=== PATIENT | female | born 1995 | race Caucasian/White ===

== ENCOUNTER 2019-09-04 19:09 | Day surgery (SDC) | payer OTHER ==
[2019-09-04 19:36] VITALS: BMI 30.7
[2019-09-04] MEDS ORDERED: hydrALAZINE 20 MG/ML VIAL SLOW IVP PRN (19:36)
--- NOTE | 2019-09-04 19:40 | PDOC.LDHP ---
Labor and Delivery H&P Chief complaint: other (vaginal pressure with decreased movements) HPI: 24 y/o F @ 26.3 weeks presents to L&D with decreased movements and vaginal pressure with urinary frequency and hesitancy. Pt denies any hx of labor or delivery, all children born at term. Last movements were yesterday morning. Pt started having abd pain this morning. pt states she feels the urge to urinate but is unable to urinate; non-painful though. Pt thinks her vaginal pressure is consistent with ctx like pain and comes and goes. Denies LOF, vaginal bleeding. admits to vag d/c that is odorous and yellow in color. No hx of STD's previously. C/o low back pain. PCP: [facility] Current gestational age (weeks): 26 (3 days ) Due date: 12/08/19 Grav: 4 Para: 3 OB History Details: Pre 1-3: at term No complications reported Current complications: none Past Medical History: asthma, uses albuterol inhaler frequently Current medications: pre-wily vitamins Previous surgical history: other (tympanostomy as a child) Allergies/Adverse Reactions: Allergies Allergy/AdvReac Type Severity Reaction Status Date / Time acetaminophen [From Tylenol] Allergy Rash Verified 09/04/19 19:29 aspirin Allergy Verified 05/06/19 16:01 codeine Allergy Rash Verified 09/04/19 19:29 ibuprofen Allergy Verified 05/06/19 16:01 Social history: none (denies etoh, tobacco or drugs) - Physical Exam Vital signs reviewed and normal: yes General: NAD Heart: RRR Lungs: CTAB Abdomen: other (suprpubic TTP) Extremeties: no edema FHT: variable decelerations, variability present (mod variabilty FHT baseline 140) [place] contractions every: none - Plan Plan: observation in L&D -: 24 y/o @ 26.3 wks presents with decreased movements and urinary frequency/hesitancy. 1. sIUP @ 26.3 wks - toco monitoring - continuous monitoring - FHT's 140 baseline, with variable decels, mod variability. 2. probable acute cystitis - UA and ccx ordered - Oral hydration - will treat pending UA results accordingly. 3. Vaginal discharge - VP3 ordered - will treat pending results 4. decreased movements - BPP 5. Vaginal pressure - FFN ordered - cervical length ordered. - no contractions on toco, but irritability. Dispo: stable, work up for pre-term labor and cystitis oral hydration BPP, cervical length and and UA pending. care plan discussed with Dr. Gutierrez who is in agreement with above stated plan. Addendum - Attending - Attending Attestation Date/Time: 09/04/192101 I personally evaluated the patient and discussed the management with Dr. Argueta. I agree with the History, Examination, Assessment and Plan documented above.
[2019-09-04 20:08] LABS: Bacteria/HPF None Seen HPF (None Seen); Bilirubin Negative (Negative); Blood, Urine Negative (Negative); Clarity Clear (Clear); Glucose, Urine (Dipstick) Normal (Negative); Ketone, Urine Negative (Negative); Leukocyte Negative Leu/uL (Negative); Nitrite Negative (Negative); Protein, Urine (Dipstick) Negative (Neg-Trace); RBC/HPF 0-3 HPF (0-3); Specific Gravity, Urine 1.015 (1.002-1.036); Squamous Epithelial 0-3 HPF (0-3); Urobilinogen Normal mg/dL (Less than 2); WBC/HPF 0-3 HPF (0-3); pH, Urine 6.5 (5.0-9.0)
[2019-09-04 20:09] LABS: Urine Culture Reflex No No
[2019-09-04 20:30] LABS: FFN Internal QC Analyzer PASS (PASS); FFN Internal QC Cassette PASS (PASS); Fetal Fibronectin Negative (Negative)
--- NOTE | 2019-09-04 21:45 | ULT ---
BIOPHYSICAL PROFILE: 09/04/19 INDICATIONS: Decreased movement. FINDINGS/IMPRESSION: tone: Score 2 movement: Score 2 breathing: Score 0 Amniotic fluid: Score 2 Total score: 6/8. position: Vertex. Amniotic fluid: Adequate. LIN recorded at 14.1 cm. Placenta is fundal and appears unremarkable. heart rate: 147 beats per minute. POS: AGW
[2019-09-04] MEDS ORDERED: Lactated Ringer's 1,000 ML IV SCH ×2 (22:00→23:00)
--- NOTE | 2019-09-04 22:11 | PDOC.BPN ---
<Gauri Argueta - Last Filed: 09/04/19 22:08> - Brief Progress Note BPP 6/8 with 0 score for breathing. Right kidney hydronephrosis with absence of ureteral jet. FFN negative. UA normal. VP3 and GC/C pending Added CBC and CMP to lab workup. Called an spoke with PCP, Dr. Garvey, about lab and US findings above, who recommends IVF hydration and pain management. Pt is allergic to most pain medications and is comfortable at this time. If pain worsens, will re-evaluate and consider other options. Will repeat limited abd sono for R hydronephrosis and no ureteral jet morning of 09/04 @ 0800. Care plan discussed with Dr. Gutierrez who is in agreement with above stated plan. <Kalen Gutierrez - Last Filed: 09/05/19 05:54> Addendum - Attending - Attending Attestation Date/Time: 09/05/19 4631 I personally evaluated the patient and discussed the management with Dr. Argueta I agree with the History, Examination, Assessment and Plan documented above.
--- NOTE | 2019-09-04 22:25 | PDOC.BPN ---
<Gauri Argueta - Last Filed: 09/04/19 22:25> - Brief Progress Note VP3 + for BV. started metronidazole 250 mg TID, for 7 days. <Kalen Gutierrez - Last Filed: 09/05/19 05:55> - Brief Progress Note Agree with above. BZ
[2019-09-04 22:29] LABS: #Basophils 0.1 thou/uL (0.0-0.2); #Eosinphils 0.2 thou/uL (0.0-0.7); #Lymphocytes 1.8 thou/uL (1.20-3.40); #Monocytes 0.4 thou/uL (0.11-0.59); #Neutrophils 6.8 thou/uL (1.40-6.50); %Basophils 0.6 % (0.0-1.0); %Eosinophils 1.6 % (0.0-10.0); %Lymphocytes 19.5 % (21.0-51.0); %Monocytes 4.8 % (0.0-10.0); %Neutrophils 73.5 % (42.0-75.0); Hemoglobin 11.5 g/dL (12.0-16.0); Mean Corpuscular HGB CONC 33.1 g/dL (32.0-36.0); Mean Corpuscular Hemoglobin 29.8 pg (27.0-31.0); Mean Platelet Volume 7.2 fL (7.4-10.4); Platelet Count 349 thou/uL (130-400); RBC Distribution Width 12.4 % (11.5-14.5); Red Blood Cell (RBC) Count 3.85 mill/uL (4.20-5.40); White Blood Cell (WBC) Count 9.2 thou/uL (4.8-10.8)
[2019-09-04 22:51] LABS: ALT (SGPT) 13 U/L (8-55); AST (SGOT) 18 U/L (5-34); Albumin 3.6 g/dL (3.5-5.0); Alkaline Phosphatase 85 U/L (40-110); Anion Gap 14 mmol/L (10-20); BUN (Urea Nitrogen) 5 mg/dL (7.0-18.7); Bilirubin, Total 0.3 mg/dL (0.2-1.2); Calc. Creatinine Clearance 186 mL/min (70-130); Calcium 8.9 mg/dL (7.8-10.44); Carbon Dioxide 22 mmol/L (22-29); Chloride 103 mmol/L (98-107); Estimated GFR-MDRD Greater than 90; Globulin 3.7 g/dL (2.4-3.5); Glucose 74 mg/dL (70-105); Potassium 3.7 mmol/L (3.5-5.1); Protein, Total 7.3 g/dL (6.0-8.3); Sodium 135 mmol/L (136-145)
[2019-09-05 02:00] VITALS: BP 135/73; TEMP 98.7
--- NOTE | 2019-09-05 06:47 | PDOC.EVN ---
Event Note - Event Note Event Note: 26 4/7 weeks Resting more comfortably this AM. IV hydrated overnight. No pain meds given 2* to multiple reported allergies. VSS AF Cr on admit= .6 Plan: Will repeat renal USG this AM to detect ureteral jet.
[2019-09-05] MEDS ORDERED: metroNIDAZOLE 500 MG TAB PO SCH ×2 (09:00)
--- NOTE | 2019-09-05 09:01 | ULT ---
RENAL ULTRASOUND: HISTORY: female with hydronephrosis. COMPARISON: None. TECHNIQUE: Multiplanar osuna-scale and color Doppler images were obtained in a renal ultrasound. FINDINGS: There is moderate right-sided hydronephrosis. Both kidneys are normal in echogenicity without calculi . No left hydronephrosis is seen. The kidneys measures 12.6 and 12.1 cm in length on the right and le ft, respectively. Both ureteral jets were visualized. IMPRESSION: Moderate right-sided hydronephrosis. POS: EAA
--- NOTE | 2019-09-05 09:21 | PDOC.BPN ---
- Brief Progress Note Official ultrasound report returned with right hydronephrosis and both ureteral jets visualized. Encouraged patient to stay hydrated and follow up w/ director data as scheduled. Sent Rx for metronidazole 250mg TID for 7 days to patient's pharmacy for BV.
[2019-09-05 17:30] LABS: Chlamydia by PCR Not Detected (NotDetected); GC by PCR Not Detected (NotDetected)
== END 2019-09-05 10:35 | disposition home health service (06) ==
LOC: L&D/OP 19:09
PROVIDERS: ATTEND Obstetrics & Gynecology
DX: O36.8120 Decreased fetal movements, second trimester, not applicable or unspecified (principal); O99.89 Other specified diseases and conditions complicating pregnancy, childbirth and the puerperium; N13.30 Unspecified hydronephrosis; R10.2 Pelvic and perineal pain; M54.5 Low back pain; O23.592 Infection of other part of genital tract in pregnancy, second trimester; B96.89 Other specified bacterial agents as the cause of diseases classified elsewhere; Z3A.26 26 weeks gestation of pregnancy; Z88.5 Allergy status to narcotic agent; Z88.6 Allergy status to analgesic agent
CPT/HCPCS: 76770; 76819; 80053; 81001; 82731; 85025; 87480; 87491; 87510; 87591; 87660

== ENCOUNTER 2020-04-08 14:26 | Emergency (ER) | payer OTHER ==
--- NOTE | 2020-04-08 15:18 | RAD ---
XR Finger(s) Rt Min 2 View History: Injury Comparison: None. Findings: No acute displaced fracture or malalignment. Normal metacarpal phalangeal and interphalange al sesamoids. Impression: No acute osseous abnormality.
== END 2020-04-08 15:40 | disposition home or self-care (01) ==
LOC: ERS 14:26
DX: S60.011A Contusion of right thumb without damage to nail, initial encounter (principal); W23.0XXA Caught, crushed, jammed, or pinched between moving objects, initial encounter

== ENCOUNTER 2020-11-18 19:49 | Emergency (ER) | payer OTHER ==
[2020-11-18] MEDS ORDERED: Morphine 4 MG/ML VIAL ONE (22:22)
== END 2020-11-18 22:30 | disposition home or self-care (01) ==
LOC: ERS 19:49
DX: S13.4XXA Sprain of ligaments of cervical spine, initial encounter (principal); S20.212A Contusion of left front wall of thorax, initial encounter; V49.40XA Driver injured in collision with unspecified motor vehicles in traffic accident, initial encounter
CPT/HCPCS: 70450; 71045; 72125; 96372; J2270

== ENCOUNTER 2021-01-07 15:16 | Emergency (ER) | payer OTHER | END 2021-01-07 16:50 | disposition home or self-care (01) | LOC: ERS 15:16 | DX: S93.402A Sprain of unspecified ligament of left ankle, initial encounter (principal); W01.0XXA Fall on same level from slipping, tripping and stumbling without subsequent striking against object, initial encounter; Y92.090 Kitchen in other non-institutional residence as the place of occurrence of the external cause ==

== ENCOUNTER 2021-01-16 18:33 | Emergency (ER) | payer OTHER ==
[2021-01-16 18:55] LABS: #Eosinphils 0.2 thou/uL (0.0-0.7); #Lymphocytes 1.6 thou/uL (1.20-3.40); #Monocytes 0.3 thou/uL (0.11-0.59); #Neutrophils 2.5 thou/uL (1.40-6.50); %Eosinophils 3.7 % (0.0-10.0); %Lymphocytes 34.6 % (21.0-51.0); %Neutrophils 54.7 % (42.0-75.0); Mean Corpuscular Hemoglobin 29.7 pg (27.0-31.0); Mean Corpuscular Volume 89.8 fL (78.0-98.0); Mean Platelet Volume 6.7 fL (7.4-10.4); Platelet Count 412 thou/uL (130-400); RBC Distribution Width 12.5 % (11.5-14.5); Red Blood Cell (RBC) Count 4.39 mill/uL (4.20-5.40); White Blood Cell (WBC) Count 4.6 thou/uL (4.8-10.8)
[2021-01-16 19:29] LABS: ALT (SGPT) 8 U/L (8-55); AST (SGOT) 11 U/L (5-34); Albumin 4.2 g/dL (3.5-5.0); Alkaline Phosphatase 56 U/L (40-110); Anion Gap 9 mmol/L (10-20); BUN (Urea Nitrogen) 8 mg/dL (7.0-18.7); Bilirubin, Total 0.6 mg/dL (0.2-1.2); Calc. Creatinine Clearance 0 mL/min (70-130); Calcium 9.3 mg/dL (7.8-10.44); Carbon Dioxide 27 mmol/L (22-29); Chloride 105 mmol/L (98-107); Globulin 2.9 g/dL (2.4-3.5); Glucose 93 mg/dL (70-105); Potassium 3.8 mmol/L (3.5-5.1); Protein, Total 7.1 g/dL (6.0-8.3); Sodium 137 mmol/L (136-145)
[2021-01-16] MEDS ORDERED: Lorazepam 2 MG/ML VIAL ONE (19:47)
[2021-01-16] MEDS ORDERED: Morphine 4 MG/ML VIAL ONE (19:47)
[2021-01-16 19:57] LABS: BHCG - Serum Negative (NEGATIVE); Pregs Control Background? CLEAR/WHITE (CLR/WHITE); Pregs Control Bar Appear? YES (CONTROL BAR)
== END 2021-01-16 21:18 | disposition home or self-care (01) ==
LOC: ERS 18:33
DX: R07.89 Other chest pain (principal)
CPT/HCPCS: 36415; 71045; 80053; 83690; 84484; 84703; 85025; 85379; 93005; 96374; 96375; J2060; J2270

== ENCOUNTER 2022-05-21 22:11 | Emergency (ER) | payer OTHER ==
[2022-05-21 23:02] LABS: #Basophils 0.1 thou/uL (0.0-0.2); #Eosinphils 0.1 thou/uL (0.0-0.7); #Lymphocytes 2.2 thou/uL (1.20-3.40); #Monocytes 0.4 thou/uL (0.11-0.59); #Neutrophils 2.9 thou/uL (1.40-6.50); %Eosinophils 2.1 % (0.0-10.0); %Lymphocytes 38.9 % (21.0-51.0); %Monocytes 6.3 % (0.0-10.0); %Neutrophils 51.6 % (42.0-75.0); Hemoglobin 13.1 g/dL (12.0-16.0); Mean Corpuscular HGB CONC 33.6 g/dL (32.0-36.0); Mean Corpuscular Hemoglobin 31.4 pg (27.0-31.0); Mean Corpuscular Volume 93.4 fl (78.0-98.0); Mean Platelet Volume 6.9 fL (7.4-10.4); Platelet Count 346 10x3/uL (130-400); RBC Distribution Width 11.8 % (11.5-14.5); Red Blood Cell (RBC) Count 4.17 mill/uL (4.20-5.40); White Blood Cell (WBC) Count 5.5 10x3/uL (4.8-10.8)
[2022-05-21 23:21] LABS: ALT (SGPT) 9 U/L (8-55); AST (SGOT) 10 U/L (5-34); Albumin 4.2 g/dL (3.5-5.0); Alkaline Phosphatase 47 U/L (40-110); Anion Gap 11 mmol/L (10-20); BUN (Urea Nitrogen) 15 mg/dL (7.0-18.7); Bilirubin, Total 0.3 mg/dL (0.2-1.2); Calc. Creatinine Clearance 0 mL/min (70-130); Calcium 9.5 mg/dL (7.8-10.44); Carbon Dioxide 27 mmol/L (22-29); Chloride 104 mmol/L (98-107); Estimated GFR 105; Globulin 2.6 g/dL (2.4-3.5); Glucose 68 mg/dL (70-105); Potassium 3.8 mmol/L (3.5-5.1); Protein, Total 6.8 g/dL (6.0-8.3); Sodium 138 mmol/L (136-145)
[2022-05-22 00:06] LABS: Bilirubin Negative (Negative); Blood, Urine Negative (Negative); Glucose, Urine (Dipstick) Negative (Negative); Ketone, Urine Negative (Negative); Leukocyte Negative (Negative); Nitrite Negative (Negative); Protein, Urine (Dipstick) Negative (Neg-Trace); Specific Gravity, Urine 1.015 (1.005-1.030); Urobilinogen 0.2 mg/dL (Less than 2); pH, Urine 6.5 (5.0-9.0)
[2022-05-22 00:12] LABS: Clarity Clear (Clear)
[2022-05-22 00:13] LABS: Pregnancy Test - Urine (BHCG) Negative (Negative); Pregu Control Background? CLEAR/WHITE (CLR/WHITE); Pregu Control Bar Appear? YES (CONTROL BAR); Specific Gravity 1.015 (1.002-1.036)
[2022-05-22] MEDS ORDERED: Ondansetron ODT 4 MG TAB ONE (00:35)
[2022-05-22] MEDS ORDERED: Ondansetron PF 4 MG/2 ML Vial ONE (01:59)
[2022-05-22] MEDS ORDERED: Dicyclomine 20 MG/2 ML VIAL ONE (01:59)
[2022-05-22] MEDS ORDERED: Iopamidol-370 76% 500 ML MDV (1 ML CHARGE) ONE (12:32)
== END 2022-05-22 03:19 | disposition home or self-care (01) ==
LOC: ERS 22:11
DX: R10.9 Unspecified abdominal pain (principal)
CPT/HCPCS: 36415; 74177; 80053; 81003; 81025; 83690; 85025; 87086; 96372; 96374; J2405; Q0162; Q9967

== ENCOUNTER 2022-05-25 14:28 | Emergency (ER) | payer OTHER ==
[~2022-05-25 14:28] MED LIST: Iopamidol-370 76% 500 ML MDV (1 ML CHARGE) ONE
[2022-05-25 15:15] LABS: Bilirubin Negative (Negative); Blood, Urine Negative (Negative); Glucose, Urine (Dipstick) Normal (Negative); Ketone, Urine Negative (Negative); Leukocyte Negative Leu/uL (Negative); Nitrite Negative (Negative); Protein, Urine (Dipstick) 10 mg/dL (Neg-Trace); Specific Gravity, Urine 1.018 (1.002-1.036); Urobilinogen Normal mg/dL (Less than 2); pH, Urine 6.5 (5.0-9.0)
[2022-05-25 15:20] LABS: Clarity Hazy (Clear)
[2022-05-25 15:21] LABS: Pregnancy Test - Urine (BHCG) Negative (Negative); Pregu Control Background? CLEAR/WHITE (CLR/WHITE); Pregu Control Bar Appear? YES (CONTROL BAR); Specific Gravity 1.018 (1.002-1.036)
[2022-05-25 16:10] LABS: ALT (SGPT) 9 U/L (8-55); AST (SGOT) 10 U/L (5-34); Albumin 4.6 g/dL (3.5-5.0); Alkaline Phosphatase 45 U/L (40-110); Anion Gap 13 mmol/L (10-20); BUN (Urea Nitrogen) 8 mg/dL (7.0-18.7); Bilirubin, Total 0.8 mg/dL (0.2-1.2); Calc. Creatinine Clearance 0 mL/min (70-130); Calcium 9.7 mg/dL (7.8-10.44); Carbon Dioxide 21 mmol/L (22-29); Chloride 106 mmol/L (98-107); Estimated GFR 105; Globulin 2.9 g/dL (2.4-3.5); Glucose 98 mg/dL (70-105); Lipase 19 U/L (8-78); Potassium 3.5 mmol/L (3.5-5.1); Protein, Total 7.5 g/dL (6.0-8.3); Sodium 136 mmol/L (136-145)
[2022-05-25] MEDS ORDERED: Lidocaine Viscous Sol 2% 15 ml UD Cup ONE (16:47)
[2022-05-25] MEDS ORDERED: Ondansetron PF 4 MG/2 ML Vial ONE ×3 (16:47→19:43)
[2022-05-25] MEDS ORDERED: Dicyclomine 20 MG TAB ONE (16:47)
[2022-05-25] MEDS ORDERED: Mag-Al 1200 mg/1200 mg/30 ML UDCUP ONE (16:47)
[2022-05-25] MEDS ORDERED: Famotidine/PF 20 mg/2ml Vial ONE (16:47)
[2022-05-25] MEDS ORDERED: Morphine 4 MG/ML VIAL ONE (19:37)
== END 2022-05-25 22:25 | disposition home or self-care (01) ==
LOC: ERS 14:28
DX: K29.70 Gastritis, unspecified, without bleeding (principal)
CPT/HCPCS: 36415; 71045; 74177; 80053; 81003; 81025; 83690; 84484; 87086; 93005; 96374; 96375; 96376; J2270; J2405; Q9967; S0028

== ENCOUNTER 2022-06-11 09:35 | Emergency (ER) | payer OTHER ==
[2022-06-11] MEDS ORDERED: Ketorolac Tromethamine 30 MG/ML VIAL ONE (12:27)
== END 2022-06-11 13:03 | disposition home or self-care (01) ==
LOC: ERS 09:35
DX: S00.12XA Contusion of left eyelid and periocular area, initial encounter (principal); S06.9X1A Unspecified intracranial injury with loss of consciousness of 30 minutes or less, initial encounter; W19.XXXA Unspecified fall, initial encounter
CPT/HCPCS: 70150; 70450; 96372; J1885